=== PATIENT | male | born 1990 | race Two or more races ===

== ENCOUNTER 2017-02-11 12:37 | Emergency (ER) | payer SELFPAY ==
--- NOTE | 2017-02-11 12:54 | ER Document Report ---
ED Medical Screen (RME) - General Chief Complaint: Other Stated Complaint: FEELS CONFUSED Time Seen by Provider: 02/11/17 12:48 Mode of Arrival: Ambulatory Information source: Patient TRAVEL OUTSIDE OF THE [place] IN LAST 30 DAYS: No - HPI Patient complains to provider of: confusion Onset: This morning - pt states he woke up with confusion, cold sweats, and "pressure behind my eyes." Tried to go to work but couldn't do his job so was sent here for further evaluation - Related Data Allergies/Adverse Reactions: No Known Allergies Allergy (Unverified 02/11/17 12:44) Past Medical History Renal/ Medical History: Denies: Hx Peritoneal Dialysis Physical Exam - Vital signs Vitals: Pulse Resp BP Pulse Ox 57 L 16 128/53 H 100 02/11/17 12:44 02/11/17 12:44 02/11/17 12:44 02/11/17 12:44 Course - Vital Signs Vital signs: Temp Pulse Resp BP Pulse Ox 57 L 16 128/53 H 100 02/11/17 12:44 02/11/17 12:44 02/11/17 12:44 02/11/17 12:44
[2017-02-11 13:31] LABS: ABSOLUTE EOSINOPHILS # (AUTO) 0.1 10^3/uL (0.0-0.6); ABSOLUTE LYMPHOCYTES (AUTO) 1.3 10^3/uL (0.5-4.7); ABSOLUTE MONOCYTES (AUTO) 0.4 10^3/uL (0.1-1.4); ABSOLUTE NEUT (AUTO) 9.4 10^3/uL (1.7-8.2); BASOPHILS % (AUTO) 0.3 % (0-2); EOSINOPHILS % (AUTO) 0.5 % (0-6); HEMATOCRIT 42.1 % (37.9-51.0); HEMOGLOBIN 14.2 g/dL (13.5-17.0); HGB HCT DIFFERENCE 0.5; LYMPHOCYTES % (AUTO) 11.8 % (13-45); MEAN CORPUSCULAR HEMOGLOBIN 29.5 pg (27.0-33.4); MEAN CORPUSCULAR HGB CONC 33.6 g/dL (32.0-36.0); MEAN CORPUSCULAR VOLUME 88 fl (80-97); MONOCYTES % (AUTO) 3.9 % (3-13); RED CELL DISTRIBUTION WIDTH 12.4 % (11.5-14.0); SEGMENTED NEUTROPHILS % (AUTO) 83.5 % (42-78); WHITE BLOOD COUNT 11.3 10^3/uL (4.0-10.5)
[2017-02-11 13:42] LABS: APPEARANCE,URINE CLEAR; BILIRUBIN,URINE NEGATIVE (NEGATIVE); GLUCOSE, URINE NEGATIVE (NEGATIVE); KETONES,URINE 80 mg/dL (NEGATIVE); LEUKOCYTE ESTERASE,URINE NEGATIVE (NEGATIVE); NITRITE,URINE NEGATIVE (NEGATIVE); PROTEIN,URINE NEGATIVE (NEGATIVE); URINE SPECIFIC GRAVITY 1.029; UROBILINOGEN,URINE NEGATIVE mg/dL (<2.0)
--- NOTE | 2017-02-11 13:42 | RADIOLOGY REPORT (SQ) ---
EXAM DESCRIPTION: CT HEAD WITHOUT COMPLETED DATE/TIME: 02/11/2017 1:31 pm REASON FOR STUDY: confusion COMPARISON: None. TECHNIQUE: Axial images acquired through the brain without intravenous contrast. Images reviewed wi th bone, brain and subdural windows. Images stored on PACS. All CT scanners at this facility use dose modulation, iterative reconstruction, and/or weight based d osing when appropriate to reduce radiation dose to as low as reasonably achievable (ALARA). [facility]: Dose Right [facility]: CareDose [facility]: Dose Right [facility]: Teradose 4D [facility]: [employer] RADIATION DOSE: 64.61 mGy. LIMITATIONS: None. FINDINGS: VENTRICLES: Normal size and contour. CEREBRUM: No masses. No hemorrhage. No midline shift. Normal cantor/white matter differentiation. N o evidence for acute infarction. CEREBELLUM: No masses. No hemorrhage. No alteration of density. No evidence for acute infarction. EXTRAAXIAL SPACES: No fluid collections. No masses. ORBITS AND GLOBE: No intra- or extraconal masses. Normal contour of globe without masses. CALVARIUM: No fracture. PARANASAL SINUSES: No fluid or mucosal thickening. SOFT TISSUES: No mass or hematoma. OTHER: No other significant finding. IMPRESSION: NORMAL BRAIN CT WITHOUT CONTRAST. TECHNICAL DOCUMENTATION: JOB ID: [id number] Quality ID # [id number]: Final reports with documentation of one or more dose reduction techniques (e.g., Au tomated exposure control, adjustment of the mA and/or kV according to patient size, use of iterative reconstruction technique) 2010 [employer]- All Rights Reserved
[2017-02-11 13:48] LABS: ALANINE AMINOTRANSFERASE 45 U/L (21-72); ALBUMIN 5.1 g/dL (3.5-5.0); ALKALINE PHOSPHATASE 59 U/L (38-126); ANION GAP 15 (5-19); ASPARTATE AMINO TRANSFERASE 61 U/L (17-59); BILIRUBIN,DIRECT 0.2 mg/dL (0.0-0.4); BILIRUBIN,TOTAL 1.8 mg/dL (0.2-1.3); BLOOD UREA NITROGEN 19 mg/dL (7-20); CALCIUM 9.6 mg/dL (8.4-10.2); CARBON DIOXIDE 25 mmol/L (22-30); CHLORIDE 102 mmol/L (98-107); CREATININE RESULT 0.87 mg/dL (0.52-1.25); GLUCOSE 62 mg/dL (75-110); POTASSIUM 4.4 mmol/L (3.6-5.0); SODIUM 142.1 mmol/L (137-145); TOTAL PROTEIN 8.1 g/dL (6.3-8.2)
[2017-02-11 13:57] LABS: URINE BARBITURATES SCREEN NEGATIVE; URINE METHADONE SCREEN NEGATIVE; URINE OPIATES LOW NEGATIVE; URINE PHENCYCLIDINE SCREEN NEGATIVE
[2017-02-11] MEDS ORDERED: ONDANSETRON ODT 4 MG TAB (6 TAB/DSPK) PO PRN (16:17)
[2017-02-11] MEDS ORDERED: ONDANSETRON 4 MG TAB.RAPDIS SL ONE (16:17)
--- NOTE | 2017-02-11 16:23 | ER Document Report ---
ED General - General Chief Complaint: Other Stated Complaint: FEELS CONFUSED Time Seen by Provider: 02/11/17 12:48 Mode of Arrival: Ambulatory Information source: Patient TRAVEL OUTSIDE OF THE [place] IN LAST 30 DAYS: No - HPI Patient complains to provider of: feeling confused Onset: This morning Onset/Duration: Sudden Quality of pain: No pain Associated symptoms: Headache, Nausea, Vomiting Exacerbated by: Denies Relieved by: Denies Similar symptoms previously: No Recently seen / treated by doctor: No Notes: Patient is a 26-year-old man male with no past medical history who presents to the emergency room today for feeling confused, states that he woke up this morning in a cold sweat, states he was not feeling like himself, ate an apple and a banana and then immediately vomited, states he felt improved but then went to work, when he could not remember his login to get into the computer system, told a coworker that he was not feeling very well and then came to the emergency room, he reports some neck pain has been going on for the past year intermittently, denies any injury or trauma, he states he vomited 2 since being in the emergency room, states he is very thirsty but anytime he goes to drink something it makes him nauseated, he admits that he has not been eating very well in recent weeks or months, mainly because it is expensive to buy food , but also whenever he goes to eat something he kind of loses his appetite for it denies any abdominal pain, no diarrhea, no fevers but patient is a smoker and admits to smoking marijuana regularly - Related Data Allergies/Adverse Reactions: No Known Allergies Allergy (Unverified 02/11/17 12:44) Past Medical History - General Information source: Patient - Social History Smoking Status: Current Every Day Smoker Chew tobacco use (# tins/day): No Frequency of alcohol use: Social Drug Abuse: Marijuana Family History: Reviewed & Not Pertinent Patient has suicidal ideation: No Patient has homicidal ideation: No Renal/ Medical History: Denies: Hx Peritoneal Dialysis Surgical Hx: Negative - Immunizations Hx Diphtheria, Pertussis, Tetanus Vaccination: No Review of Systems - Review of Systems Constitutional: Malaise, Weakness EENT: No symptoms reported Cardiovascular: No symptoms reported Respiratory: No symptoms reported Gastrointestinal: Nausea, Vomiting Genitourinary: No symptoms reported Male Genitourinary: No symptoms reported Musculoskeletal: No symptoms reported Skin: No symptoms reported Hematologic/Lymphatic: No symptoms reported Neurological/Psychological: Confusion -: Yes All other systems reviewed and negative Physical Exam - Vital signs Vitals: Pulse Resp BP Pulse Ox 57 L 16 128/53 H 100 02/11/17 12:44 02/11/17 12:44 02/11/17 12:44 02/11/17 12:44 Interpretation: Normal - General General appearance: Appears well, Alert - HEENT Head: Normocephalic, Atraumatic Eyes: Normal Pupils: PERRL - Respiratory Respiratory status: No respiratory distress Chest status: Nontender Breath sounds: Normal Chest palpation: Normal - Cardiovascular Rhythm: Regular Heart sounds: Normal auscultation Murmur: No - Abdominal Inspection: Normal Distension: No distension Bowel sounds: Normal Tenderness: Nontender Organomegaly: No organomegaly - Back Back: Normal, Nontender - Extremities General upper extremity: Normal inspection, Nontender, Normal color, Normal ROM , Normal temperature General lower extremity: Normal inspection, Nontender, Normal color, Normal ROM , Normal temperature, Normal weight bearing. No: Aris's sign - Neurological Neuro grossly intact: Yes Cognition: Normal Orientation: AAOx4 Salima Coma Scale Eye Opening: Spontaneous Salima Coma Scale Verbal: Oriented [place] Coma Scale Motor: Obeys Commands [place] Coma Scale Total: 15 Speech: Normal Motor strength normal: LUE, RUE, LLE, RLE Sensory: Normal - Psychological Associated symptoms: Normal affect, Normal mood - Skin Skin Temperature: Warm Skin Moisture: Dry Skin Color: Normal Course - Re-evaluation Re-evalutation: 02/11/17 16:20 Patient is noted to have a serum glucose of 62 and 80 ketones in his urine, these are signs of nourishment, these findings were discussed with patient at bedside who agrees that he has not been eating very well, he also reports that he does get nauseated at times when he is eating, therefore he was given antinausea medication, fed a meal tray in the emergency room and advised to start eating more healthy regular meals, follow-up with a primary care provider or return if symptoms worsen, acknowledges understanding and agreement with the - Vital Signs Vital signs: Temp Pulse Resp BP Pulse Ox 97.2 F 57 L 16 128/53 H 100 02/11/17 12:56 02/11/17 12:44 02/11/17 12:44 02/11/17 12:44 02/11/17 12:44 - Laboratory Result Diagrams: 02/11/17 13:14 02/11/17 13:14 Laboratory results interpreted by me: 02/11/17 02/11/17 02/11/17 13:14 13:14 13:14 WBC 11.3 H Seg Neutrophils % 83.5 H Lymphocytes % 11.8 L Absolute Neutrophils 9.4 H Glucose 62 L Total Bilirubin 1.8 H AST 61 H Albumin 5.1 H Urine Ketones 80 H - Diagnostic Test Radiology reviewed: Image reviewed, Reports reviewed Discharge - Discharge Clinical Impression: Malnutrition Condition: Stable Disposition: HOME, SELF-CARE Additional Instructions: Follow up with your primary care provider in one to 2 days. Return to the emergency room immediately if symptoms worsen or any additional concerns. Several healthy well-balanced meals throughout the day. Forms: Return to Work
[2017-02-11 17:08] VITALS: BP 110/66
== END 2017-02-11 17:07 | disposition home or self-care (01) ==
LOC: ER 12:37
DX: E46 Unspecified protein-calorie malnutrition (principal); R41.0 Disorientation, unspecified; R11.2 Nausea with vomiting, unspecified; R53.1 Weakness; M54.2 Cervicalgia; F17.200 Nicotine dependence, unspecified, uncomplicated
CPT/HCPCS: 99285; 36415; 85025; 80053; 81001; 80307; 70450; S0119